=== PATIENT | male | born 1940 | race Caucasian/White ===

== ENCOUNTER 2021-12-24 21:20 | Inpatient (IN) | payer OTHER ==
[~2021-12-24] VITALS: Ht 170.2 cm; Wt 72.6 kg
[2021-12-24 21:26] VITALS: BP_SYST 100
[2021-12-24 22:23] LABS: BILIRUBIN,URINE NEGATIVE (NEGATIVE); BLOOD, URINE 2+ (NEGATIVE); COLOR,URINE YELLOW (YELLOW); GLUCOSE,URINE NEGATIVE (NEGATIVE); KETONES,URINE NEGATIVE (NEGATIVE); LEUKOCYTE ESTERASE ,URINE NEGATIVE (NEGATIVE); NITRITE, URINE NEGATIVE (NEGATIVE); PROTEIN URINE NEGATIVE (NEGATIVE); UROBILINOGEN,URINE 0.2 (0.2-1.0)
[2021-12-24 22:24] LABS: CLARITY/URINE SLIGHTLY CLOUDY (CLEAR)
[2021-12-24 22:27] LABS: BACTERIA,URINE FEW /HPF (None Seen); WBC,URINE 0-3 /HPF (0-3)
[2021-12-24 22:47] LABS: HEMOGLOBIN 9.8 g/dL (14.0-18.0)
[2021-12-24 22:48] LABS: ANION GAP 8 (5-15); CALCIUM 8.7 mg/dL (8.4-11.0); CHLORIDE 111 mmol/L (98-107); CREATININE 1.13 mg/dL (0.55-1.30); GLUCOSE 108 mg/dL (70-99); POTASSIUM 3.4 mmol/L (3.5-5.1); SODIUM SERUM 146 mmol/L (136-145); UREA NITROGEN, BLOOD 40 mg/dL (8-21)
[2021-12-24 22:52] LABS: INR 1.1 (0.80-1.20); PROTHROMBIN TIME 11.1 SECS (9.5-12.5)
[2021-12-24 22:55] LABS: ALANINE AMINOTRANSFERASE 84 U/L (12-78); ALBUMIN 1.7 g/dL (3.4-4.8); ASPARTATE AMINOTRANSFERASE 68 U/L (10-37); TOTAL BILIRUBIN 0.7 mg/dL (0.0-1.0)
[2021-12-24 23:08] LABS: HEMATOCRIT 30.4 % (36-54); LYMPHOCYTES # (AUTO) 0.5 K/uL (1.0-5.5); LYMPHOCYTES % (AUTO) 3.2 % (20.5-51.5); MEAN CORPUSCULAR HEMOGLOBIN 25 pg (27-31); MEAN CORPUSCULAR HGB CONC 32 % (32-36); MEAN CORPUSCULAR VOLUME 78 fL (79.0-98.0); MONOCYTES # (AUTO) 0.6 K/uL (0.0-1.0); MONOCYTES % (AUTO) 3.8 % (1.7-9.3); NEUTROPHILS # (AUTO) 15.4 K/uL (1.8-7.7); PLATELET COUNT (AUTO) 156 K/uL (130-430); RED CELL DISTRIBUTION WIDTH 25.1 % (9.0-15.0); WHITE BLOOD COUNT (AUTO) 16.6 K/uL (4.8-10.8)
[2021-12-25 00:48] LABS: ACETAMINOPHEN 7 ug/mL (1-30)
[2021-12-25 00:50] LABS: ALCOHOL, BLOOD < 3 mg/dL (<10)
[2021-12-25] MEDS ORDERED: cefTRIAXone 1 GM IVPB PREMIX 50 ML IV ONE (01:15)
[2021-12-25] MEDS ORDERED: AZITHROMYCIN 500 MG in NS 250 ML IV ONE (01:15)
[2021-12-25] MEDS ORDERED: NACL 0.9% 1,000 ML IV ONE ×3 (01:15→02:00)
[2021-12-25] MEDS ORDERED: AZITHROMYCIN 500 MG/VIAL (ZITHROMAX) IV ONE ×2 (02:29→21:19)
[2021-12-25] MEDS ORDERED: ACETAMINOPHEN 650 MG/20.3 ML UDC PO PRN (04:15)
[2021-12-25 05:02] LABS: BARBITURATE, URINE NEGATIVE (NEG <=200); BENZODIAZEPINE, URINE NEGATIVE (NEG <=150); CANNABINOID, URINE NEGATIVE (NEG <=50); COCAINE, URINE NEGATIVE (NEG <=150); METHAMPHETAMINES SCREEN,URINE NEGATIVE (NEG <=500); OPIATE, URINE NEGATIVE (NEG <=100); PHENCYCLIDINE SCREEN,URINE NEGATIVE (NEG <=25); UR TRICYCLIC ANTIDEPRESSANTS NEGATIVE (NEG <=300); URINE AMPHETAMINE NEGATIVE (NEG <=500); URINE METHADONE NEGATIVE (NEG <=200); URINE OXYCODONE SCREEN NEGATIVE (NEG <=100); URINE PROPOXYPHENE SCREEN NEGATIVE (NEG <=300)
[2021-12-25 06:30] VITALS: BP_SYST 129
[2021-12-25 07:45] VITALS: BP_SYST 142
[2021-12-25] MEDS: ENOXAPARIN SODIUM 40 MG/0.4 ML SYRINGE SUBCUT SCH (09:47)
[2021-12-25] MEDS: DEXAMETHASONE SOD PHOSPHATE 4 MG/ML VIAL IVP SCH (11:05)
[2021-12-25 11:34] LABS: C-REACTIVE PROTEIN QUANT 10.1 mg/dL (0-0.5)
[2021-12-25 11:45] VITALS: BP_SYST 152
[2021-12-25 11:52] LABS: INR 1.2 (0.80-1.20); PROTHROMBIN TIME 11.7 SECS (9.5-12.5)
[2021-12-25 15:45] VITALS: BP_SYST 139
[2021-12-25] MEDS: KCL 20 mEq in D5NS 1000 mL 1,000 ML IV SCH (17:35)
[2021-12-25 20:00] VITALS: BP_SYST 139
[2021-12-25] MEDS: ASCORBIC ACID 500 MG TABLET PO SCH (20:34)
[2021-12-25] MEDS ORDERED: cefTRIAXone 1 GM in D5W 50 ML IV SCH (21:00)
[2021-12-25] MEDS ORDERED: cefTRIAXone 1 GM VIAL ONE (21:18)
[2021-12-25] MEDS: AZITHROMYCIN 500 MG in NS 250 ML IV SCH (21:22)
[2021-12-26] VITALS: BP_SYST 137
[2021-12-26 07:43] LABS: ANION GAP 9 (5-15); CALCIUM 8.4 mg/dL (8.4-11.0); CHLORIDE 119 mmol/L (98-107); CREATININE 1.31 mg/dL (0.55-1.30); GLUCOSE 115 mg/dL (70-99); SODIUM SERUM 157 mmol/L (136-145); UREA NITROGEN, BLOOD 38 mg/dL (8-21)
[2021-12-26 08:00] VITALS: BP_SYST 136
[2021-12-26 08:44] LABS: BASOPHILS % (AUTO) 0.2 % (0.0-2.0); EOSINOPHILS % (AUTO) 0.1 % (0.0-4.0); HEMATOCRIT 33.9 % (36-54); HEMOGLOBIN 10.3 g/dL (14.0-18.0); LYMPHOCYTES # (AUTO) 0.5 K/uL (1.0-5.5); LYMPHOCYTES % (AUTO) 3.1 % (20.5-51.5); MEAN CORPUSCULAR HEMOGLOBIN 25 pg (27-31); MEAN CORPUSCULAR HGB CONC 31 % (32-36); MEAN CORPUSCULAR VOLUME 83 fL (79.0-98.0); MONOCYTES # (AUTO) 0.5 K/uL (0.0-1.0); NEUTROPHILS # (AUTO) 15.5 K/uL (1.8-7.7); NEUTROPHILS % (AUTO) 93.6 % (40.0-70.0); PLATELET COUNT (AUTO) 170 K/uL (130-430); RED BLOOD CELL COUNT(AUTO) 4.08 MIL/uL (4.2-6.2); RED CELL DISTRIBUTION WIDTH 26.4 % (9.0-15.0); WHITE BLOOD COUNT (AUTO) 16.6 K/uL (4.8-10.8)
[2021-12-26] MEDS: ASCORBIC ACID 500 MG TABLET PO SCH ×2 (09:00→21:00)
[2021-12-26] MEDS: CHOLECALCIFEROL (VITAMIN D3) 5,000 UNIT TABLET PO SCH (09:00)
[2021-12-26] MEDS: ENOXAPARIN SODIUM 40 MG/0.4 ML SYRINGE SUBCUT SCH (10:15)
[2021-12-26] MEDS: DEXAMETHASONE SOD PHOSPHATE 4 MG/ML VIAL IVP SCH (10:16)
[2021-12-26 12:00] VITALS: BP_SYST 139
[2021-12-26] MEDS ORDERED: VANCOMYCIN HCL 1 GM/NS PREMIX 250 ML IV ONE (12:00)
[2021-12-26] MEDS ORDERED: POTASSIUM CHLORIDE 40 MEQ in NS 250 ML IV ONE (12:30)
[2021-12-26] MEDS: KCL 20 mEq in D5NS 1000 mL 1,000 ML IV SCH ×3 (12:43→23:45)
[2021-12-26] MEDS ORDERED: TOCILIZUMAB 400 MG in NS 100 ML IV ONE (14:00)
[2021-12-26] MEDS ORDERED: *TPN PER PHARMACY XX PRN (14:15)
[2021-12-26 16:00] VITALS: BP_SYST 133
[2021-12-26] MEDS: PIPERACILLIN/TAZO 3.375/DEX-IS 50 ML IV SCH ×2 (16:23→22:06)
[2021-12-26 20:00] VITALS: BP_SYST 80
[2021-12-26] MEDS ORDERED: MUPIROCIN 2% TOPICAL OINTMENT 22 GM NS SCH (21:00)
[2021-12-26] MEDS: AZITHROMYCIN 500 MG in NS 250 ML IV SCH (22:07)
[2021-12-26] MEDS ORDERED: AZITHROMYCIN 500 MG/VIAL (ZITHROMAX) IV ONE (22:31)
[2021-12-26] MEDS ORDERED: NS 500 ML IV ONE (23:30)
[2021-12-27] VITALS: BP_SYST 59
[2021-12-27] MEDS: PIPERACILLIN/TAZO 3.375/DEX-IS 50 ML IV SCH ×2 (03:22→10:44)
[2021-12-27] MEDS: KCL 20 mEq in D5NS 1000 mL 1,000 ML IV SCH (06:25)
[2021-12-27 07:36] LABS: ALANINE AMINOTRANSFERASE 462 U/L (12-78); ALBUMIN 1.1 g/dL (3.4-4.8); ANION GAP 13 (5-15); ASPARTATE AMINOTRANSFERASE 1459 U/L (10-37); CALCIUM 8.2 mg/dL (8.4-11.0); CREATININE 2.44 mg/dL (0.55-1.30); GLUCOSE 141 mg/dL (70-99); PHOSPHORUS 12.9 mg/dL (2.7-4.5); SODIUM SERUM 159 mmol/L (136-145); TOTAL BILIRUBIN 0.4 mg/dL (0.0-1.0); UREA NITROGEN, BLOOD 52 mg/dL (8-21)
[2021-12-27 08:25] VITALS: BP_SYST 85
[2021-12-27] MEDS: ASCORBIC ACID 500 MG TABLET PO SCH (09:00)
[2021-12-27] MEDS: CHOLECALCIFEROL (VITAMIN D3) 5,000 UNIT TABLET PO SCH (09:00)
[2021-12-27 09:24] LABS: POTASSIUM 6.5 mmol/L (3.5-5.1)
[2021-12-27 09:25] LABS: CHLORIDE 125 mmol/L (98-107)
[2021-12-27 09:45] LABS: C-REACTIVE PROTEIN QUANT 25.8 mg/dL (0-0.5)
[2021-12-27 09:57] LABS: TRIGLYCERIDES 108 mg/dL (30-150)
[2021-12-27] MEDS: ENOXAPARIN SODIUM 40 MG/0.4 ML SYRINGE SUBCUT SCH (10:43)
[2021-12-27] MEDS: DEXAMETHASONE SOD PHOSPHATE 4 MG/ML VIAL IVP SCH (10:44)
[2021-12-27] MEDS ORDERED: D5NS 1,000 ML IV SCH (12:00)
[2021-12-27] MEDS ORDERED: SODIUM POLYSTYRENE SULFONATE 15 GM/60 ML UDBTL RC ONE (12:00)
[2021-12-27] MEDS ORDERED: MVI IV SCH ×5 (21:00)
[2021-12-27] MEDS ORDERED: AMINO ACIDS IV SCH ×5 (21:00)
[2021-12-27] MEDS ORDERED: TRACE ELEMENTS IV SCH ×5 (21:00)
[2021-12-27] MEDS ORDERED: TPN CENTRAL IV SCH ×5 (21:00)
[2021-12-27] MEDS ORDERED: [UNRECOGNIZED DRUG - OTHER] IV SCH ×5 (21:00)
== END 2021-12-27 15:00 | DRG 871 ==
LOC: SED 21:20 → STU 12-25 04:08
PROVIDERS: ADMIT Family Medicine; ATTEND Family Medicine
PROC: XW033E5 Introduction of Remdesivir Anti-infective into Peripheral Vein, Percutaneous Approach, New Technology Group 5 (ICD-10-PCS; 2021-12-25)
PROC: 5A09357 Assistance with Respiratory Ventilation, Less than 24 Consecutive Hours, Continuous Positive Airway Pressure (ICD-10-PCS; principal; 2021-12-26)
PROC: XW033H5 Introduction of Tocilizumab into Peripheral Vein, Percutaneous Approach, New Technology Group 5 (ICD-10-PCS; 2021-12-26)
DX: A41.9 Sepsis, unspecified organism (principal); E43 Unspecified severe protein-calorie malnutrition; U07.1 COVID-19; J12.82 Pneumonia due to coronavirus disease 2019; J96.01 Acute respiratory failure with hypoxia; G93.41 Metabolic encephalopathy; N39.0 Urinary tract infection, site not specified; D64.9 Anemia, unspecified; E66.9 Obesity, unspecified; Z66 Do not resuscitate; E87.6 Hypokalemia; F03.90 Unspecified dementia, unspecified severity, without behavioral disturbance, psychotic disturbance, mood disturbance, and anxiety; I10 Essential (primary) hypertension; Z68.25 Body mass index [BMI] 25.0-25.9, adult; Z79.899 Other long term (current) drug therapy; Z87.891 Personal history of nicotine dependence; Z88.1 Allergy status to other antibiotic agents; Z88.2 Allergy status to sulfonamides
CPT/HCPCS: 36415; 36600; 70450-TC; 71045; 76376; 80048; 80053; 80307; 81000; 82728; 82803-TC; 83605; 83615; 83735; 84100; 84478; 84484; 85025; 85379; 85610-TC; 85730-TC; 86140; 87040; 87081; 87086; 93005; 94660; 94760; 96361; 96365; 96375; 99285; G0378; G0480; G0481; G0482; J0456; J0696; J1100; J1650; J2543; J3262; J3370; J3480; J7050